=== PATIENT | female | born 1960 | race African-American/Black ===

== ENCOUNTER → 2017-03-19 | Day surgery (SDC) | payer OTHER ==
[~2017-03-19] VITALS: Ht 157.5 cm; Wt 72.0 kg
[~2017-03-19] MED LIST: ACETAMINOPHEN 1000 MG/100 ML VIAL IV ONE; AMLO10TA2 PO; CHLORHEXIDINE GLUCONATE 2 % 1 PACK (2 CLOTHS) TOPICAL PRN; CLINDAMYCIN 600 MG/NS 100 ML IV SCH; DO NOT ADM ANY ANTICOAGULANT DRUGS PRN; ESTROGENS CONJUGATED VAG CREA 15 APPL/30 GM TUBE ONE; FAMOTIDINE 20 MG/2 ML VIAL ONE; GLIM4TAB PO; INSULIN HUMAN REGULAR 1,000 UNITS/10 ML VIAL SQ PRN; KETOROLAC TROMETHAMINE 60 MG/2 ML (IM) VIAL IM ONE; LACTATED RINGER'S 1000 ML IV PRN; LOSA100T PO; METF1000 PO; METO100T9 PO; METOPROLOL TARTRATE 25 MG TAB PO PRN; ONDANSETRON HCL 4 MG/2 ML VIAL IV PUSH ONE; POVIDONE IODINE 5% (ANTISEPSIS KIT) 4 APPLICATIONS EACH NARE PRN; PROPOFOL 200 MG/20 ML AMP IV ONE; SODIUM CHLORID 0.9% 500 ML IV PRN; SODIUM CHLORIDE 0.9% INJ 100 ML ONE; TAMO20TA6 PO; TRAD5TAB PO; oxyCODONE/ACETAMINOPHEN 5 MG/325 MG TAB PO PRN
[2017-03-19 07:27] VITALS: BP 158/88; PULSE 86; RESP 18; TEMP 98.5; O2SAT 99
--- NOTE | 2017-03-19 07:47 | EKG ---
Date Performed: 03/19/2017 Time Performed: 07:10:00 PTAGE: 56 years EKG: Sinus rhythm VOLTAGE CRITERIA FOR LVH ABNORMAL ECG NO PREVIOUS TRACING DOCTOR: Derek Gutiérrez Interpretating Date/Time 03/19/2017 07:45:39
--- NOTE | 2017-03-19 08:21 | PD.OP ---
Operative Report Date of Surgery: Mar 19, 2017 Preoperative Diagnosis: (1) Thickened endometrium (2) Intramural leiomyoma of uterus (3) Intraductal carcinoma in situ of right breast Postoperative Diagnosis: (1) Thickened endometrium (2) Intramural leiomyoma of uterus (3) Endometrial polyp (4) Intraductal carcinoma in situ of right breast Procedure: 1. hysteroscopy 2. D&C Anesthesia: General Surgeon: Maria De Jesus Cam[place]illo [employer]er(s): OR staff Operation and Findings: IVF: 800 ml LR + IV antibiotics given prior to surgery UO: 100 ml EBL: <25 ml Findings: multiple endometrial polyps noted; adhesions also noted in cavity Specimens: endometrial polyps and curettings Complications: none Condition: stable Descriptions of the procedure: I discussed the risks, benefits and alternatives of the procedure with the patient and her family. Informed consent was obtained after questions were answered. She was taken to the operating room with her IV running. She was placed in the supine position and was given general anesthesia without difficulties or complications. She was then placed in the dorsal lithotomy position and was prepped and draped in the usual sterile fashion. A bivalve speculum was placed inside the patient's vagina. The anterior aspect of the cervix was grasped with a single tooth tenaculum for manipulation. The cervix was carefully dilated. A hysteroscope was introduced inside the patient' s uterus. Multiple endometrial polyps of different sizes were seen inside the uterine cavity. There were multiple adhesions noted in the uterine cavity as well. The Myosure was used to remove them. A gentle D&C was carefully done. The endometrial polyps and curettings were sent to pathology. All the instruments were removed from the uterine cavity. The cervix was noted to be hemostatic. All the instruments were removed from the patient's vagina. The patient tolerated the procedure well. She was successfully awaken from general anesthesia and was transferred to PACU in stable condition. Note: I discussed surgical findings and surgical procedure with the patient's sister; her questions were answered; she verbalized understanding and agreement to the procedure done. Maria De Jesus Camarillo MD Mar 19, 2017 08:21
[2017-03-19 13:30] VITALS: BP 150/84; PULSE 78; RESP 20; TEMP 97.6; O2SAT 99
== END | disposition home or self-care (01) ==
LOC: HSDC 06:40
PROVIDERS: ATTEND Obstetrics & Gynecology
DX: D25.1 Intramural leiomyoma of uterus (principal); N84.0 Polyp of corpus uteri; R93.8 Abnormal findings on diagnostic imaging of other specified body structures; D05.11 Intraductal carcinoma in situ of right breast; I10 Essential (primary) hypertension; E11.9 Type 2 diabetes mellitus without complications; Z01.818 Encounter for other preprocedural examination; Z01.810 Encounter for preprocedural cardiovascular examination; Z79.810 Long term (current) use of selective estrogen receptor modulators (SERMs)
CPT/HCPCS: 00952; 58558; 88305; 93005; J0131; J1885; J2405; J3010

== ENCOUNTER 2017-07-09 08:48 | Inpatient (IN) | payer OTHER ==
[~2017-07-09] VITALS: Ht 157.5 cm; Wt 66.9 kg
[~2017-07-09 08:48] MED LIST changes: -ACETAMINOPHEN 1000 MG/100 ML VIAL IV ONE; -CHLORHEXIDINE GLUCONATE 2 % 1 PACK (2 CLOTHS) TOPICAL PRN; -CLINDAMYCIN 600 MG/NS 100 ML IV SCH; -DO NOT ADM ANY ANTICOAGULANT DRUGS PRN; -ESTROGENS CONJUGATED VAG CREA 15 APPL/30 GM TUBE ONE; -FAMOTIDINE 20 MG/2 ML VIAL ONE; -INSULIN HUMAN REGULAR 1,000 UNITS/10 ML VIAL SQ PRN; -KETOROLAC TROMETHAMINE 60 MG/2 ML (IM) VIAL IM ONE; -LACTATED RINGER'S 1000 ML IV PRN; -METO100T9 PO; +METO1TAB43 PO; -METOPROLOL TARTRATE 25 MG TAB PO PRN; -ONDANSETRON HCL 4 MG/2 ML VIAL IV PUSH ONE; -POVIDONE IODINE 5% (ANTISEPSIS KIT) 4 APPLICATIONS EACH NARE PRN; -PROPOFOL 200 MG/20 ML AMP IV ONE; -SODIUM CHLORID 0.9% 500 ML IV PRN; -SODIUM CHLORIDE 0.9% INJ 100 ML ONE; -oxyCODONE/ACETAMINOPHEN 5 MG/325 MG TAB PO PRN
[2017-07-09] MEDS ORDERED: ERGO2000 PO (09:52)
[2017-07-09] MEDS ORDERED: DULA10IN SQ (09:52)
[2017-07-09] MEDS ORDERED: FLUT50SP EACH NARE (09:52)
[2017-07-09] MEDS ORDERED: LOVA10TA PO (09:52)
[2017-07-09] MEDS ORDERED: METOPROLOL TARTRATE 25 MG TAB PO PRN (10:15)
[2017-07-09] MEDS ORDERED: CLINDAMYCIN 900 MG PREMIX 50 ML IV SCH (10:15)
[2017-07-09] MEDS ORDERED: CHLORHEXIDINE GLUCONATE 2 % 1 PACK (2 CLOTHS) TOPICAL PRN (10:15)
[2017-07-09] MEDS ORDERED: POVIDONE IODINE 5% (ANTISEPSIS KIT) 4 APPLICATIONS EACH NARE PRN (10:15)
[2017-07-09] MEDS ORDERED: CLINDAMYCIN INJ 900 MG in SODIUM CHLORIDE 0.9% INJ 100 ML IV SCH (10:15)
[2017-07-09] MEDS ORDERED: SODIUM CHLORID 0.9% 500 ML IV PRN (10:15)
[2017-07-09] MEDS ORDERED: LACTATED RINGER'S 1000 ML IV PRN (10:15)
[2017-07-09] MEDS ORDERED: BUPIVACAINE/EPINEPHRINE 0.25% 50 ML VIAL ONE (10:25)
[2017-07-09] MEDS ORDERED: ACETAMINOPHEN 1000 MG/100 ML 100 ML IV ONE (10:56)
[2017-07-09] MEDS ORDERED: FLUORESCEIN SOD 10% SOLN 500 MG/5 ML AMP ONE (10:58)
--- NOTE | 2017-07-09 11:00 | PD.OP ---
Operative Report Date of Surgery: Jul 09, 2017 Preoperative Diagnosis: (1) Postmenopausal bleeding (2) Benign endometrial hyperplasia (3) Thickened endometrium (4) Intraductal carcinoma in situ of right breast Postoperative Diagnosis: (1) Postmenopausal bleeding (2) Benign endometrial hyperplasia (3) Thickened endometrium (4) Intraductal carcinoma in situ of right breast Procedure: 1. LAVH + BSO converted to YEYO + BSO 2. extensive lysis of adhesions Anesthesia: SUE Surgeon: Maria De Jesus Cam[place] [employer](s): OR Staff Operation and Findings: IVF: 2 liters of LR + IV antibiotics given prior to surgery UO: 225 ml EBL: 400 ml Findings: 1. extensive abdominal and pelvic adhesions involving the bowel, the anterior abdominal wall, the pelvic organs, the pelvic side dunbar, the posterior cul de sac 2. multiple very large fibroids 3. normal tubes and ovaries Specimens: cervix, uterus, tubes, ovaries Complications: none Condition: stable Disposition: PACU Description of the procedure: The risks, benefits and alternatives of the procedure were discussed with the patient. Informed consent was obtained after questions were answered. The patient was then transferred to the operating room with her IV running. Antibiotics were given prior to surgery. She was placed in the supine position and was given general anesthesia without difficulties or complications. The patient was placed in the dorsal lithotomy position and was prepped and draped in the usual sterile fashion . Attention was then turned to the patient's pelvis. A bivalve speculum was placed inside the patient's vagina. The anterior aspect of the cervix was grasped with a single tooth tenaculum for manipulation. The cervix was carefully dilated. A uterine manipulator was placed inside the uterus. The rest of the instruments were removed from the patient's vagina. The surgeon changed gloves and attention was then turned to the patient's abdomen. Next, a vertical umbilical incision was made with the scalpel. A 5mm trocar was placed inside the abdomen while observing with the camera. A pneumoperitoneum was created with CO2 gas. Extensive adhesions were noted as described above. However, since there were some "windows" noted between the adhesions, a laparoscopic hysterectomy was attempted. Three more 5 mm trocars were placed in the mid, left and right lower abdomen. Extensive lysis of adhesions was needed to return the anatomy to normal and to be able to proceed with hysterectomy. However, after extensive lysis of adhesions, additional layers of adhesions were encountered. The decision was then made to proceed with open procedure due to lack of adequate visualization. All the instruments were removed from the patient's abdomen. The uterine manipulator was also removed and the patient's position was changed to a supine position. A Pfannenstiel skin incision was then made with the scalpel. The incision was extended to the fascia with the Bovie. The fascia was incised in the midline with a scalpel. The fascial incision was then extended sharply with Cox scissors. Next, the rectus muscles were in the midline with a hemostat and the peritoneum was identified and entered bluntly. A [place] retractor was placed inside the patient's abdomen. Care was taken to place moist laps under the blades. The bowel was carefully packed away with moist laparotomy sponges. A bladder blade was also introduced inside the pelvic cavity. The left round ligament was identified, doubly clamped, transected and suture ligated with 0-Vicryl. Adequate hemostasis was noted. The left infundibulopelvic ligament was doubly clamped, transected and suture ligated times two with 0-Vicryl. The same was done on the right side. Good hemostasis was noted as well. The tissues along the uterus were serially doubly clamped, transected and suture ligated times two with 0-Vicryl. Good hemostasis was noted. The upper part of the uterus was removed using the Bovie to aid in visualization. The lower uterine segment and cervix were serially doubly clamped , transected and suture ligated times two with 0-Vicryl. The vaginal tissues under the cervix were clamped and transected with Leopoldo scissors. The vaginal cuff was closed with running, locked sutures of 0-Vicryl. Copious irrigation was done several times. The ureters were not identified well due to the difficulty of the surgery and the adhesions encountered. Iridescent dye was given at the beginning of the surgery; no spillage or blockage was noted. Excellent hemostasis was noted at all the surgical sites and pedicles. Interseed was placed over the vaginal cuff and pedicles. All the instruments were removed from the patient's pelvis and vagina. The instrument count was correct times three. The bowel was carefully inspected and noted to be intact. The peritoneum was closed with interrupted stitches of 2-0 Vicryl. The rectus muscles were reapproximated with running stitches of 0-Vicryl. The fascia was reapproximated with running stitches of looped 0-PDS. The subcutaneous tissues were copiously irrigated and reapproximated with running stitches using 2-0 Vicryl. The skin was reapproximated with running stitches of Monocryl on a curved needle. Mastisol and steri strips were placed over the incision. The umbilical and skin incision were also closed with Monocryl and covered with band aids. The patient was successfully extubated and taken to PACU in stable condition. Since the patient had to be open, arrangements were made for inpatient admission. Note: I discussed surgical findings and surgical procedures with patient's sister over the phone. Her questions were answered. She verbalized understanding and agreement to the procedures done. Maria De Jesus Camarillo MD Jul 09, 2017 11:00
[2017-07-09] MEDS: LACTATED RINGER'S 1000 ML INJ 1,000 ML IV SCH (14:34)
[2017-07-09] MEDS ORDERED: ZOLPIDEM TARTRATE 5 MG TAB PO PRN (14:45)
[2017-07-09] MEDS ORDERED: IBUPROFEN 600 MG TAB PO PRN (14:45)
[2017-07-09] MEDS ORDERED: ONDANSETRON HCL 4 MG/2 ML VIAL IV PUSH PRN (14:45)
[2017-07-09] MEDS ORDERED: oxyCODONE/ACETAMINOPHEN 10 MG/325 MG TAB PO PRN (14:45)
[2017-07-09] MEDS ORDERED: PANTOPRAZOLE SODIUM 40 MG VIAL IV PUSH PRN (14:45)
[2017-07-09] MEDS ORDERED: diphenhydrAMINE HCL 50 MG/ML VIAL IV PUSH PRN (14:45)
[2017-07-09] MEDS ORDERED: LORazepam 0.5 MG TAB PO PRN (14:45)
[2017-07-09] MEDS ORDERED: diphenhydrAMINE HCL 25 MG CAP PO PRN (14:45)
[2017-07-09] MEDS ORDERED: ONDANSETRON ODT 4 MG TAB SL PRN (14:45)
[2017-07-09] MEDS ORDERED: oxyCODONE/ACETAMINOPHEN 5 MG/325 MG TAB PO PRN (14:45)
[2017-07-09] MEDS ORDERED: SODIUM CHLORIDE 0.9% FLUSH 10 ML FLUSH IV FLUSH PRN (14:45)
[2017-07-09] MEDS ORDERED: DOCUSATE SODIUM 100 MG CAP PO PRN (14:45)
[2017-07-09] MEDS ORDERED: PILL SPLITTER OTHER PRN (15:00)
[2017-07-09] MEDS ORDERED: *morphine SULFATE 8 MG/ML PERIprocedure ONLY ONE ×3 (15:01→16:08)
[2017-07-09] MEDS ORDERED: DO NOT ADM ANY ANTICOAGULANT DRUGS PRN (15:30)
[2017-07-09 15:45] LABS: HEMATOCRIT 32.4 % (35.0-46.0)
[2017-07-09 15:47] LABS: REVIEW FLAG FINAL
[2017-07-09 16:30] VITALS: BP 109/71; PULSE 88; RESP 15; TEMP 98.8; O2SAT 99
[2017-07-09] MEDS: MORPHINE SULFATE 4 MG/ML INJ IV PUSH PRN ×2 (17:19→20:14)
[2017-07-09 20:10] VITALS: BP 111/70; PULSE 82; RESP 16; TEMP 98.2; O2SAT 100
[2017-07-09] MEDS: ACETAMINOPHEN 1000 MG/100 ML 100 ML IV SCH (20:13)
[2017-07-09] MEDS ORDERED: SODIUM CHLORIDE 0.9% FLUSH 10 ML FLUSH IV FLUSH SCH (21:00)
[2017-07-10 00:10] VITALS: BP 112/69; PULSE 72; RESP 16; TEMP 98; O2SAT 100
[2017-07-10] MEDS: LACTATED RINGER'S 1000 ML INJ 1,000 ML IV SCH (02:39)
[2017-07-10] MEDS: ACETAMINOPHEN 1000 MG/100 ML 100 ML IV SCH ×2 (02:39→08:45)
[2017-07-10 05:15] VITALS: BP 115/70; PULSE 86; RESP 18; TEMP 98.1; O2SAT 100
[2017-07-10 05:27] LABS: AUTOMATED NEUTROPHIL # 2.9 TH/MM3 (1.8-7.7); BASOPHIL % 0.3 % (0.0-2.0); HEMATOCRIT 29.3 % (35.0-46.0); HEMO FLAGS DIFF FINAL; LYMPH % 38.6 % (9.0-44.0); LYMPHOCYTE # 2.2 TH/MM3 (1.0-4.8); MEAN CELL VOLUME 87.2 FL (80.0-100.0); MEAN CORPUSCULAR HEMOGLOBIN 29.7 PG (27.0-34.0); MEAN CORPUSCULAR HGB CONC 34.1 % (32.0-36.0); MONO % 11.1 % (0.0-8.0); PLATELET COUNT 134 TH/MM3 (150-450); RED BLOOD COUNT 3.36 MIL/MM3 (4.00-5.30); RED CELL DISTRIBUTION WIDTH 13.7 % (11.6-17.2); WHITE BLOOD COUNT 5.8 TH/MM3 (4.0-11.0)
[2017-07-10 05:47] LABS: BICARBONATE 25.1 MEQ/L (21.0-32.0)
[2017-07-10 08:21] VITALS: BP 105/62; PULSE 79; RESP 18; TEMP 97.9; O2SAT 100
--- NOTE | 2017-07-10 09:19 | HHI.PR ---
Subjective Remarks Doing well, pain is well controlled, eating well. Objective Vital Signs Vital Signs Date Time Temp Pulse Resp B/P (MAP) Pulse Ox O2 Delivery O2 Flow Rate FiO2 07/10/17 05:15 98.1 86 18 115/70 (85) 100 07/10/17 00:10 98.0 72 16 112/69 (83) 100 07/09/17 20:40 16 07/09/17 20:20 18 07/09/17 20:10 98.2 82 16 111/70 (84) 100 07/09/17 16:30 98.8 88 15 109/71 (84) 99 07/09/17 16:00 97.8 85 20 110/63 (79) 100 Nasal Cannula 2 07/09/17 15:45 86 20 120/63 (82) 100 Nasal Cannula 2 07/09/17 15:30 85 20 124/63 (83) 100 Nasal Cannula 2 07/09/17 15:15 88 20 129/67 (87) 100 Nasal Cannula 2 07/09/17 15:00 86 20 128/66 (86) 100 Nasal Cannula 2 07/09/17 14:41 97.8 83 20 120/61 (80) 100 Nasal Cannula 07/09/17 10:00 98.4 86 18 143/86 (105) 100 I/O 07/09/17 07/09/17 07/09/17 07/10/17 07/10/17 07/10/17 07:00 15:00 23:00 07:00 15:00 23:00 Intake Total 2000 ml 1716 ml Output Total 625 ml 250 ml 1100 ml Balance 1375 ml -250 ml 616 ml Intake IV Total 1716 ml Other 2000 ml Output Urine Total 225 ml 250 ml 1100 ml Estimated Blood Loss 400 ml Result Diagram: 07/10/17 0444 07/10/17 0444 Objective Remarks Chest is clear, regular rate and rhythm. Abdomen is soft and non-distended. Incision is clean and dry. Ext no CCE. A/P Assessment and Plan Post Op Day 1 Doing well Home today and return to office in two weeks. Maria De Jesus Camarillo MD Jul 10, 2017 09:19
[2017-07-10] MEDS ORDERED: GLUCAGON 1 MG/ML VIAL OTHER PRN (09:30)
[2017-07-10] MEDS ORDERED: DEXTROSE 50% IN WATER 50 ML VIAL(D50) IV PUSH PRN (09:30)
[2017-07-10 11:50] VITALS: BP 114/71; PULSE 82; RESP 16; TEMP 98.1
[2017-07-10] MEDS ORDERED: INSULIN NovoLIN REGULAR SUPPLEMENTAL SCALE SQ SCH (12:00)
== END 2017-07-10 13:52 | disposition home or self-care (01) | DRG 743 ==
LOC: HSDC 08:48 → HSDI 14:51 → H1EA 16:20
PROVIDERS: ADMIT Obstetrics & Gynecology; ATTEND Obstetrics & Gynecology
PROC: 0UT90ZZ Resection of Uterus, Open Approach (ICD-10-PCS; 2017-07-09)
PROC: 0UTC0ZZ Resection of Cervix, Open Approach (ICD-10-PCS; 2017-07-09)
PROC: 0UT20ZZ Resection of Bilateral Ovaries, Open Approach (ICD-10-PCS; 2017-07-09)
PROC: 0UT70ZZ Resection of Bilateral Fallopian Tubes, Open Approach (ICD-10-PCS; 2017-07-09)
PROC: 0DNW4ZZ Release Peritoneum, Percutaneous Endoscopic Approach (ICD-10-PCS; principal; 2017-07-09 10:50)
DX: N85.01 Benign endometrial hyperplasia (principal); I10 Essential (primary) hypertension; D25.9 Leiomyoma of uterus, unspecified; N73.6 Female pelvic peritoneal adhesions (postinfective); D05.11 Intraductal carcinoma in situ of right breast; N95.0 Postmenopausal bleeding; R93.8 Abnormal findings on diagnostic imaging of other specified body structures; E78.5 Hyperlipidemia, unspecified; I73.9 Peripheral vascular disease, unspecified; E11.9 Type 2 diabetes mellitus without complications; Z79.84 Long term (current) use of oral hypoglycemic drugs
CPT/HCPCS: 80048; 82948; 85014; 85018; 85025; 86850; 86900; 86901; 88307; C1765; J0131; J2270; J7120